=== PATIENT | male | born 1970 | race Hispanic/Latino ===

== ENCOUNTER 2018-04-07 15:50 | Emergency (ER) | payer OTHER ==
--- NOTE | 2018-04-07 16:36 | Emergency Department Report ---
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 He says that he immediately went to the eye wash station and washed his eye for about 5-10 minutes. He denies any eye pain or significant irritation. Patient has a past medical history of hypertension. He later admits to a history of HIV for which he takes medications compliantly. ED Past Medical Hx - Past Medical History Previous Medical History?: Yes Hx Hypertension: Yes Hx Psychiatric Treatment: Yes (DEPRESSION, ANXIETY) Additional medical history: NON ALLERGY RHINATITIS - Surgical History Past Surgical History?: Yes Additional Surgical History: TONSILECTOMY. ACL RECONSTRUCTION. UNBLICOIL REPAIR - Social History Smoking Status: Never Smoker Substance Use Type: Alcohol - Medications Home Medications: Home Medications Medication Instructions Recorded Confirmed Last Taken Type Tobramycin [Tobrex] 1 drop OD TID #1 bottle 04/07/18 Unknown Rx ED Review of Systems ROS: Stated complaint: EXPOSURE TO STOOL Other details as noted in HPI Comment: All other systems reviewed and negative Constitutional: denies: chills, fever Eyes: denies: eye pain, eye discharge, vision change ENT: denies: ear pain, throat pain Respiratory: denies: cough, shortness of breath, wheezing Cardiovascular: denies: chest pain, palpitations Gastrointestinal: denies: abdominal pain, nausea, diarrhea Genitourinary: denies: urgency, dysuria Musculoskeletal: denies: back pain, joint swelling, arthralgia Skin: denies: rash, lesions Neurological: denies: headache, weakness, paresthesias Physical Exam - Physical Exam Vital Signs: Vital Signs 04/07/18 15:58 Temperature 98.6 F Pulse Rate 98 H Respiratory 18 Rate Blood Pressure 153/86 O2 Sat by Pulse 97 Oximetry Physical Exam: GENERAL: The patient is well-developed well-nourished. HENT: Normocephalic. Atraumatic. Patient has moist mucous membranes. EYES: Extraocular motions are intact. Pupils equal reactive to light bilaterally. NECK: Supple. Trachea is midline. CHEST/LUNGS: Clear to auscultation. There is no respiratory distress noted. HEART/CARDIOVASCULAR: Regular. There is no tachycardia. There is no murmur. ABDOMEN: There is no abdominal distention. SKIN: Skin is warm and dry. NEURO: The patient is awake, alert, and oriented. The patient is cooperative. The patient has no focal neurologic deficits. The patient has normal speech. MUSCULOSKELETAL: There is no tenderness or deformity. There is no evidence of acute injury. ED Course Vital Signs 04/07/18 15:58 Temperature 98.6 F Pulse Rate 98 H Respiratory 18 Rate Blood Pressure 153/86 O2 Sat by Pulse 97 Oximetry ED Medical Decision Making - Medical Decision Making Patient came in for evaluation from working upstairs after one of his patients bloody stools squirted into his eye. Regarding the eye itself, there is no signs of any conjunctivitis, discharge, tearing and he has no complaints of any burning or vision changes. He'll be treated empirically with ecchymotic eyedrops and has been given a referral for follow-up with ophthalmology. Regarding the patient's postexposure prophylaxis, his blood work was drawn and sent to the lab. I contacted [facility] so that they can follow the patient's lab results and also work on seeing if this nurse's patient has given permission for a blood draw to check for HIV and/or hepatitis C. I spoke to my patient regarding possible HIV treatment prophylactically. It was at this point that he informed me that he is already HIV positive and taking medication and therefore does not need any prophylactic treatment. He understands that there is no prophylactic treatment against hepatitis C. He is already been vaccinated against hepatitis B. He's been discharged to follow-up with [facility] but to return to the emergency department with any concerns or any further issues regarding his eye. Critical Care Time: No Critical care attestation.: If time is entered above; I have spent that time in minutes in the direct care of this critically ill patient, excluding procedure time. ED Disposition Clinical Impression: Employee exposure to body fluids Disposition: - TO HOME OR SELFCARE Is pt being admited?: No Condition: Stable Instructions: Postexposure Prophylaxis (ED) Additional Instructions: Please follow up with the [facility] services. 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 I am empirically and prophylactically started you on antibiotic eyedrops. Return to the emergency department with any concerns or acute distress. Prescriptions: Tobramycin [Tobrex] 1 drop OD TID #1 bottle Referrals: PRIMARY CARE, [Primary Care Provider] - 3-5 Days DARY STOKES MD [Staff Physician] - as needed Health, Employee [Other] - 3-5 Days
[2018-04-07 17:22] VITALS: BP 136/72
[2018-04-07] MEDS ORDERED: TOBREX OU ONE (17:53)
== END 2018-04-07 17:20 | disposition home or self-care (01) ==
LOC: ED 15:50
DX: H57.11 Ocular pain, right eye (principal); Z77.21 Contact with and (suspected) exposure to potentially hazardous body fluids; I10 Essential (primary) hypertension; F32.9 Major depressive disorder, single episode, unspecified; F41.9 Anxiety disorder, unspecified; Z90.89 Acquired absence of other organs; Z88.1 Allergy status to other antibiotic agents
CPT/HCPCS: 99282